=== PATIENT | female | born 1935 | race Hispanic/Latino ===

== ENCOUNTER 2017-10-19 09:51 | Outpatient (RCR) | payer MEDICARE, OTHER ==
[~2017-10-19 09:51] MED LIST: ASPIRIN81 M1; CRESTOR10 MG; GLYBURIDE5 MG PO; HYDROCHLOROTHIA25 MG PO; ISOSORBIDE MONO30 M1 PO; JANUVIA100 MG; KLOR-CON20 MEQ; LANTUS100 UNIT/1 SC; LISINOPRIL10 MG PO; METFORMIN HCL750 MG; METOPROLOL SUCC50 MG PO; NITROGLYCERIN0.4 MG SL; XARELTO20 MG PO; [UNRECOGNIZED DRUG - OTHER]
== END 2017-10-25 ==
LOC: PT 09:51
PROVIDERS: ATTEND Internal Medicine Endocrinology, Diabetes & Metabolism
DX: M12.9 Arthropathy, unspecified (principal)
CPT/HCPCS: 97110 ×2; 97163; G8978; G8979